=== PATIENT | female | born 1995 | race Asian ===

== ENCOUNTER 2022-08-15 16:51 | Emergency (ER) | payer BC, OTHER ==
[2022-08-15] MEDS ORDERED: Bacitracin 1 PK ONE ×2 (17:36→17:42)
== END 2022-08-15 19:08 | disposition home or self-care (01) ==
LOC: ERS 16:51
DX: S01.311A Laceration without foreign body of right ear, initial encounter (principal); S60.512A Abrasion of left hand, initial encounter; S60.511A Abrasion of right hand, initial encounter; S80.811A Abrasion, right lower leg, initial encounter; S20.111A Abrasion of breast, right breast, initial encounter; R55 Syncope and collapse; W18.30XA Fall on same level, unspecified, initial encounter
CPT/HCPCS: 70450; 70486